=== PATIENT | female | born 1990 | race Two or more races ===

== ENCOUNTER 2018-09-30 13:40 | Observation (INO) | payer MEDICAID, OTHER ==
[~2018-09-30] VITALS: Ht 154.9 cm; Wt 73.0 kg
[2018-09-30] MEDS ORDERED: PREN-96 PO (16:07)
== END 2018-09-30 16:35 | disposition home or self-care (01) | DRG 566 ==
LOC: LDRP 13:40
PROVIDERS: ADMIT Obstetrics & Gynecology; ATTEND Obstetrics & Gynecology
DX: O36.5930 Maternal care for other known or suspected poor fetal growth, third trimester, not applicable or unspecified (principal); O26.893 Other specified pregnancy related conditions, third trimester; R26.81 Unsteadiness on feet; Z3A.35 35 weeks gestation of pregnancy
CPT/HCPCS: 59025; 76818; 81002; G0378

== ENCOUNTER 2018-10-03 11:20 | Observation (INO) | payer MEDICAID ==
[~2018-10-03] VITALS: Ht 154.9 cm; Wt 73.0 kg
[~2018-10-03 11:20] MED LIST: PREN-96 PO
== END 2018-10-03 13:18 | disposition home or self-care (01) | DRG 566 ==
LOC: LDRP 11:20
PROVIDERS: ADMIT Specialist; ATTEND Specialist
DX: O36.5930 Maternal care for other known or suspected poor fetal growth, third trimester, not applicable or unspecified (principal); Z3A.35 35 weeks gestation of pregnancy
CPT/HCPCS: 59025; 76818; 81002; G0378

== ENCOUNTER 2018-10-06 11:15 | Observation (INO) | payer MEDICAID | END 2018-10-06 13:05 | disposition home or self-care (01) | DRG 566 | LOC: LDRP 11:15 | PROVIDERS: ADMIT Specialist; ATTEND Specialist | DX: O26.893 Other specified pregnancy related conditions, third trimester (principal); Z3A.36 36 weeks gestation of pregnancy | CPT/HCPCS: 59025; 76818; 81002; G0378 ==

== ENCOUNTER 2018-10-10 09:06 | Observation (INO) | payer MEDICAID | END 2018-10-10 12:29 | disposition home or self-care (01) | DRG 566 | LOC: LDRP 11:00 | PROVIDERS: ADMIT Obstetrics & Gynecology; ATTEND Obstetrics & Gynecology | DX: O36.5930 Maternal care for other known or suspected poor fetal growth, third trimester, not applicable or unspecified (principal); Z3A.36 36 weeks gestation of pregnancy | CPT/HCPCS: 59025; 76818; 81002; G0378 ==

== ENCOUNTER 2018-10-14 12:55 | Observation (INO) | payer MEDICAID | END 2018-10-14 14:40 | disposition home or self-care (01) | DRG 566 | LOC: LDRP 12:55 | PROVIDERS: ADMIT Obstetrics & Gynecology; ATTEND Obstetrics & Gynecology | DX: O36.5930 Maternal care for other known or suspected poor fetal growth, third trimester, not applicable or unspecified (principal); Z3A.37 37 weeks gestation of pregnancy | CPT/HCPCS: 59025; 76818; 81002; G0378 ==

== ENCOUNTER 2018-10-17 10:35 | Observation (INO) | payer MEDICAID | END 2018-10-17 11:30 | disposition home or self-care (01) | DRG 566 | LOC: LDRP 10:35 | PROVIDERS: ADMIT Obstetrics & Gynecology; ATTEND Obstetrics & Gynecology | DX: O36.5930 Maternal care for other known or suspected poor fetal growth, third trimester, not applicable or unspecified (principal); Z3A.37 37 weeks gestation of pregnancy | CPT/HCPCS: 59025; 76818; 81002; G0378 ==

== ENCOUNTER 2018-10-21 10:16 | Observation (INO) | payer MEDICAID | END 2018-10-21 17:05 | disposition home or self-care (01) | DRG 566 | LOC: LDRP 15:52 | PROVIDERS: ADMIT Specialist; ATTEND Specialist | DX: O36.5930 Maternal care for other known or suspected poor fetal growth, third trimester, not applicable or unspecified (principal); Z3A.38 38 weeks gestation of pregnancy | CPT/HCPCS: 59025; 76818; 81002; G0378 ==

== ENCOUNTER 2018-10-24 08:55 | Observation (INO) | payer MEDICAID | END 2018-10-24 10:10 | disposition home or self-care (01) | DRG 566 | LOC: LDRP 08:55 | PROVIDERS: ADMIT Specialist; ATTEND Specialist | DX: O36.5930 Maternal care for other known or suspected poor fetal growth, third trimester, not applicable or unspecified (principal); Z3A.38 38 weeks gestation of pregnancy | CPT/HCPCS: 59025; 81002; G0378 ==

== ENCOUNTER 2018-10-27 19:40 | Observation (INO) | payer MEDICAID ==
[~2018-10-27] VITALS: Ht 154.9 cm; Wt 75.3 kg
== END 2018-10-27 21:15 | disposition home or self-care (01) | DRG 566 ==
LOC: LDRP 19:40
PROVIDERS: ADMIT Specialist; ATTEND Specialist
DX: O36.5930 Maternal care for other known or suspected poor fetal growth, third trimester, not applicable or unspecified (principal); Z3A.39 39 weeks gestation of pregnancy
CPT/HCPCS: 76818; G0378; 59025; 81002

== ENCOUNTER 2018-10-29 06:35 | Observation (INO) | payer MEDICAID | END 2018-10-29 08:47 | disposition home or self-care (01) | DRG 566 | LOC: SUR 06:35 → LDRP 06:35 → EDSTATUS 06:46 | PROVIDERS: ADMIT Obstetrics & Gynecology; ATTEND Obstetrics & Gynecology | DX: O62.9 Abnormality of forces of labor, unspecified (principal); Z3A.39 39 weeks gestation of pregnancy | CPT/HCPCS: 59025; 76818; 81002; G0378 ==

== ENCOUNTER 2018-10-29 20:17 | Inpatient (IN) | payer MEDICAID | END 2018-11-01 09:18 | disposition home or self-care (01) | LOC: LDRP 20:17 | PROC: 10D07Z6 Extraction of Products of Conception, Vacuum, Via Natural or Artificial Opening (ICD-10-PCS; principal; ~2018-10-29) | PROC: 0KQM0ZZ Repair Perineum Muscle, Open Approach (ICD-10-PCS; ~2018-10-29) | DX: O70.1 Second degree perineal laceration during delivery (principal); Z37.0 Single live birth; Z3A.39 39 weeks gestation of pregnancy ==

== ENCOUNTER 2019-12-25 21:36 | Inpatient (IN) | payer MEDICAID ==
[~2019-12-25] VITALS: Ht 154.9 cm; Wt 77.1 kg
[2019-12-25] MEDS ORDERED: WITCH HAZEL-GLYCERIN PAD TOP PRN (23:30)
[2019-12-25] MEDS ORDERED: PROMETHAZINE HCL 25 MG/ML 1ML IM PRN (23:30)
[2019-12-25] MEDS ORDERED: BUTORPHANOL TARTRATE 2 MG/1 ML VIAL IV PRN ×2 (23:30)
[2019-12-25] MEDS ORDERED: PHISODERM TOP SOLN 240ML BTL TOP PRN (23:30)
[2019-12-25] MEDS ORDERED: LIDOCAINE 2%HCL (LOCAL ANESTH.) INJ 20ML MDV IJ ONE (23:30)
[2019-12-25] MEDS ORDERED: DERMOPLAST 60ML BOTTLE TOP PRN (23:30)
[2019-12-25] MEDS ORDERED: ceFAZolin 1GM/50ML 50 ML IV ONE (23:53)
[2019-12-26 00:28] LABS: Basophils # (auto) 0 10 ^3/uL (0-0.2); Basophils % (auto) 0.3 % (0.0-2.0); Eosinophils # (auto) 0 10 ^3/uL (0-0.8); Eosinophils % (auto) 0.4 % (0.0-7.0); Hematocrit 35.6 % (36.0-46.0); Lymphocytes # (auto) 2.5 10 ^3/uL (0.4-5.4); Lymphocytes % (auto) 30.5 % (10.0-50.0); Mean Corpuscular Hemoglobin 30.9 pg (28.0-32.0); Mean Corpuscular Hgb Conc. 33.6 g/dL (32.0-36.0); Mean Corpuscular Volume 91.7 fL (80.0-100.0); Monocytes # (auto) 0.7 10 ^3/uL (0-1.3); Monocytes % (auto) 8.1 % (0.0-12.0); Neutrophils # (auto) 5.1 10 ^3/uL (1.6-8.6); Neutrophils % (auto) 60.7 % (37.0-80.0); Nucleated Red Blood Cells % 0.3 %; Platelet Count (auto) 296 10^3/uL (140-450); Red Blood Cells 3.89 10^6/uL (4.0-5.20); Red Cell Distribution Width 14.2 % (11.8-14.3); White Blood Cell 8.3 10^3/uL (4.4-10.8)
[2019-12-26 00:42] LABS: INR 0.92 (0.9-1.15); Partial Thromboplastin Time 24.8 sec (23.0-31.2)
[2019-12-26 00:45] LABS: Albumin 2.6 g/dL (3.4-5.0); BUN/Creatinine Ratio 11.1; Calcium 8.6 mg/dL (8.5-10.1); Potassium 3.7 mmol/L (3.5-5.1)
[2019-12-26 00:47] LABS: Bilirubin, Total 0.2 mg/dL (0.2-1.0); Total Protein 6.5 g/dL (6.4-8.2)
[2019-12-26 01:54] LABS: Urine Bacteria FEW /hpf (None Seen); Urine Blood 2+ /uL (Negative); Urine Mucus FEW (None Seen); Urine WBC 10 /hpf (0 - 5)
[2019-12-26] MEDS ORDERED: miSOPROStol 50 MCG per PRE-CUT 1/2 TAB PO SCH (02:00)
[2019-12-26 02:02] LABS: Alcohol, Urine < 3.0 mg/dL (0-10); Amphetamine Screen, Urine NEGATIVE (NEGATIVE); Barbiturate Scree,Urine NEGATIVE (NEGATIVE); Benzodiazephine Screen, Urine NEGATIVE (NEGATIVE); Cannabinoid Screen, Urine NEGATIVE (NEGATIVE); Cocaine Screen, Urine NEGATIVE (NEGATIVE); Opiate Scree,Urine NEGATIVE (NEGATIVE); Phencyclidine Screen, Urine NEGATIVE (NEGATIVE)
[2019-12-26] MEDS ORDERED: LIDOCAINE HCL 2 %PF INJ 10ML AMP IJ ONE (05:30)
[2019-12-26] MEDS ORDERED: ROPIVACAINE HCL 200 ML EPI SCH ×4 (05:30→08:30)
[2019-12-26] MEDS ORDERED: fentaNYL CITRATE 100 MCG/2 ML VL IV ONE ×2 (05:30→07:15)
[2019-12-26] MEDS ORDERED: LACTATED RINGER'S 500 ML IV ONE ×2 (05:30→07:15)
[2019-12-26] MEDS ORDERED: NALOXONE HCL 0.4 MG/ML VIAL IV ONE ×2 (05:30→07:15)
[2019-12-26] MEDS ORDERED: ePHEDrine SULFATE 50 MG/ML AMP IV ONE ×2 (05:30→07:15)
[2019-12-26] MEDS ORDERED: LACT. RINGERS/OXYTOCIN 20UNITS 1,000 ML IV SCH (06:15)
[2019-12-26] MEDS ORDERED: LIDOCAINE 2%HCL (LOCAL ANESTH.) INJ 20ML MDV IJ ONE (07:15)
[2019-12-26] MEDS ORDERED: SODIUM CHLORIDE 0.9% 500 ML IV PRN (07:15)
[2019-12-26] MEDS: LACTATED RINGER'S 1,000 ML IV SCH ×2 (07:30→09:22)
[2019-12-26] MEDS: ceFAZolin 1GM/50ML 50 ML IV SCH ×4 (07:56→22:13)
[2019-12-26] MEDS ORDERED: ACETAMINOPHEN 325 MG TAB PO PRN (11:45)
--- NOTE | 2019-12-26 13:35 | NUR ---
Ambulation: Patient OOB with standby assistance by RN. Patient ambulated to bathroom with steady gait. Patient able to void without difficulty. Pericare teaching provided with returned demonstration by patient. Clean gown provided and bed linen changed. Patient ambulated back to bed with steady gait and no distress noted.
[2019-12-26] MEDS: IBUPROFEN 600 MG TAB PO PRN (14:35)
[2019-12-26 14:40] VITALS: BP 126/73
[2019-12-26 18:30] VITALS: BP 121/70
[2019-12-26 22:30] VITALS: BP 128/47
[2019-12-27 03:00] VITALS: BP 130/50
[2019-12-27] MEDS: IBUPROFEN 600 MG TAB PO PRN ×3 (04:30→15:21)
[2019-12-27] MEDS: ceFAZolin 1GM/50ML 50 ML IV SCH (06:43)
[2019-12-27 06:58] VITALS: BP 140/76
[2019-12-27 08:06] LABS: RPR Non Reactive (Non Reactive)
[2019-12-27 11:01] VITALS: BP 138/76
[2019-12-27 15:17] VITALS: BP 137/90
--- NOTE | 2019-12-27 15:45 | NUR ---
IV removal IV DC'd with clean sterile technique, catheter fully intact. Pressure dressing applied to site. Patient tolerated well. NOTE:
[2019-12-27 19:00] VITALS: BP 139/81
--- NOTE | 2019-12-27 19:00 | NUR ---
EDUCATION TO GIVEN TO MOTHER REGARDING BLOOD PRESSURE. REVIEWED WITH CNM STUDENT
--- NOTE | 2019-12-27 19:00 | NUR ---
Discharge: Discharge instructions given as ordered. Pt encouraged to follow up with [facility] as instructed. All questions and concerns addressed. Patient verbalized understanding. Medication reconciliation completed and copy given to patient. All required/requested vaccines given and copies of vaccinations given to patient. Patient encouraged to prepare to depart unit.
--- NOTE | 2019-12-27 19:19 | NUR ---
Discharge: Patient taken to vehicle via wheelchair with all personal belongings, accompanied by staff and family member. No distress noted at time of departure, no adverse changes in status since initial assessment.
--- NOTE | 2019-12-27 19:48 | NUR ---
CALL PLACED TO MOTHER THAT THIS RN NEEDS TO GIVE ALL DISCHARGE PAPERWORK. PT STATED THAT FATHER OF BABY WILL BE BY TO [facility] TONIGHT.
[2019-12-27 19:53] VITALS: BP 139/81
== END 2019-12-27 19:19 | disposition home or self-care (01) | DRG 560 ==
LOC: LDRP 21:36 → OBSVTOIN 21:36 → LDRP 12-27 10:46
PROVIDERS: ADMIT Obstetrics & Gynecology; ATTEND Obstetrics & Gynecology
PROC: 10E0XZZ Delivery of Products of Conception, External Approach (ICD-10-PCS; principal; 2019-12-26)
PROC: 0KQM0ZZ Repair Perineum Muscle, Open Approach (ICD-10-PCS; 2019-12-26)
PROC: 3E0R3BZ Introduction of Anesthetic Agent into Spinal Canal, Percutaneous Approach (ICD-10-PCS; 2019-12-26)
PROC: 00HU33Z Insertion of Infusion Device into Spinal Canal, Percutaneous Approach (ICD-10-PCS; 2019-12-26)
DX: O69.81X0 Labor and delivery complicated by cord around neck, without compression, not applicable or unspecified (principal); O42.02 Full-term premature rupture of membranes, onset of labor within 24 hours of rupture; Z37.0 Single live birth; Z3A.39 39 weeks gestation of pregnancy; O70.1 Second degree perineal laceration during delivery; Z20.828 Contact with and (suspected) exposure to other viral communicable diseases
CPT/HCPCS: 36415; 59025; 59409; 62282; 76815; 80053; 80307; 81001; 81002; 84112; 85025; 85610; 85730; 86592; 86850; 86900; 86901; 87426; 96360; 96361; 96365; 96366; G0378; J0690; J2590

== ENCOUNTER 2021-06-20 04:41 | Emergency (ER) | payer MEDICAID ==
[~2021-06-20] VITALS: Ht 154.9 cm; Wt 65.8 kg
[2021-06-20] MEDS ORDERED: ONDANSETRON HCL 4 MG/2 ML VIAL IV ONE (07:15)
[2021-06-20] MEDS ORDERED: MORPHINE SULFATE 4 MG/ML SYR/VIAL IV ONE (07:15)
[2021-06-20] MEDS ORDERED: SODIUM CHLORIDE 0.9% 1,000 ML IVB ONE (07:15)
[2021-06-20] MEDS ORDERED: SODIUM CHLORIDE 0.9% 1,000 ML IV ONE (07:15)
[2021-06-20 07:50] LABS: Basophils # (auto) 0 10 ^3/uL (0-0.2); Basophils % (auto) 0.2 % (0.0-2.0); Eosinophils # (auto) 0 10 ^3/uL (0-0.8); Eosinophils % (auto) 0.1 % (0.0-7.0); Hematocrit 42.5 % (36.0-46.0); Hemoglobin 14.5 g/dL (12.2-16.2); Lymphocytes # (auto) 0.8 10 ^3/uL (0.4-5.4); Lymphocytes % (auto) 11.5 % (10.0-50.0); Mean Corpuscular Hemoglobin 30.8 pg (28.0-32.0); Mean Corpuscular Hgb Conc. 34.1 g/dL (32.0-36.0); Mean Corpuscular Volume 90.3 fL (80.0-100.0); Monocytes # (auto) 0.2 10 ^3/uL (0-1.3); Monocytes % (auto) 3.2 % (0.0-12.0); Neutrophils # (auto) 5.8 10 ^3/uL (1.6-8.6); Red Blood Cells 4.71 10^6/uL (4.0-5.20); Red Cell Distribution Width 13.2 % (11.8-14.3); White Blood Cell 6.8 10^3/uL (4.4-10.8)
[2021-06-20 08:05] LABS: Albumin 4.3 g/dL (3.4-5.0); Potassium 3.8 mmol/L (3.5-5.1)
[2021-06-20 08:07] LABS: Bilirubin, Total 0.4 mg/dL (0.2-1.0)
[2021-06-20 08:08] LABS: Total Protein 8.3 g/dL (6.4-8.2)
[2021-06-20 09:04] LABS: Urine Bacteria FEW /hpf (None Seen); Urine Blood Negative /uL (Negative); Urine Mucus FEW (None Seen); Urine Specific Gravity 1.009 (1.001-1.035); Urine WBC 1 /hpf (0 - 5)
[2021-06-20 12:00] VITALS: BP 148/88
== END 2021-06-20 12:10 | disposition home or self-care (01) ==
LOC: ER 04:41
DX: R10.13 Epigastric pain (principal); R11.2 Nausea with vomiting, unspecified; Z79.899 Other long term (current) drug therapy
CPT/HCPCS: 36415; 74176; 80053; 81001; 83605; 83690; 85025; 87040; 96361; 96374; 96375; 99285; J2270; J2405; J7030